=== PATIENT | female | born 1995 | race Caucasian/White ===

== ENCOUNTER 2020-06-27 07:13 | Inpatient (IN) | payer SELFPAY ==
[~2020-06-27 07:13] MED LIST: Bupivacaine 0.25% 30 ML SDV ONE; ePHEDrine Sulfate/0.9% NaCl/Pf 25 MG/5 ML SYRINGE IV ONE
[2020-06-27] MEDS ORDERED: Nalbuphine 10 MG/1 ML Vial IVPUSH PRN (08:20)
[2020-06-27] MEDS ORDERED: Ondansetron 4 MG/2 ML SDV IVPUSH PRN (08:20)
[2020-06-27] MEDS ORDERED: Sodium Chloride 0.9% 10 ML Syringe FLUSH PRN (08:20)
[2020-06-27] MEDS ORDERED: Oxytocin/Lactated Ringers 10 UNIT/1,000 ML BAG IV SCH ×2 (08:30)
[2020-06-27] MEDS: Lactated Ringers 1,000 ML IV SCH ×5 (08:46→20:53)
--- NOTE | 2020-06-27 08:48 | PCM.LDHP ---
L&D History of Present Illness - General Date of Service: 06/27/20 Admit Problem/Dx: Patient Status Order with Admit Dx/Problem 06/27/20 08:20 Patient Status [ADT] Routine Admission Diagnosis/Problem Admission Diagnosis/Problem Source of Information: Patient History Limitations: Reports: No Limitations - History of Present Illness Introduction:: 24 year old at 39w6 here in active labor. care with myself without complications. - Related Data Allergies/Adverse Reactions: Allergies Allergy/AdvReac Type Severity Reaction Status Date / Time No Known Allergies Allergy Verified 06/27/20 08:29 H&P Review of Systems - Review of Systems: Review Of Systems: See Below General: Reports: No Symptoms HEENT: Reports: No Symptoms Pulmonary: Reports: No Symptoms Cardiovascular: Reports: No Symptoms Gastrointestinal: Reports: No Symptoms Genitourinary: Reports: No Symptoms Musculoskeletal: Reports: No Symptoms Skin: Reports: No Symptoms Psychiatric: Reports: No Symptoms Neurological: Reports: No Symptoms Hematologic/Lymphatic: Reports: No Symptoms Immunologic: Reports: No Symptoms L&D Exam - Exam Exam: See Below - Vital Signs Weight: 88.451 kg - OB Specific Contraction Intensity: Mild to Moderate Movement: Active Heart Tones: Present Heart Rate (FHR) Variability: Moderate (6-25 bmp) Presentation: Vertex - Arellano Score Arellano Score Consistency: Medium Arellano Score Effacement: 51-70% Arellano Score Dilation: > 5 cm Arellano Score 's Station: -2 - Exam General: Alert, Oriented HEENT: PERRLA, Conjunctiva Clear, EACs Clear, EOMI, Hearing Intact, Mucosa Moist & Foley, Nares Patent, Normal Nasal Septum, Posterior Pharynx Clear, TMs Clear Neck: Supple, Trachea Midline Lungs: Clear to Auscultation, Normal Respiratory Effort Cardiovascular: Regular Rate, Regular Rhythm GI/Abdominal Exam: Normal Bowel Sounds, Soft, Non-Tender, No Organomegaly, No Distention, No Abnormal Bruit, No Mass, Pelvis Stable Extremities: Normal Inspection, Normal Range of Motion, Non-Tender, No Pedal Edema, Normal Capillary Refill Skin: Warm, Dry, Intact Psychiatric: Alert, Normal Affect, Normal Mood Problem List Initiated/Reviewed/Updated: Yes Orders Last 24hrs: Active Orders 24 hr Category Date Time Status Patient Status [ADT] Routine ADT 06/27/20 08:20 Active Regular Diet [DIET] Diet 06/27/20 Breakfast Active BLOOD BANK HOLD SPECIMEN [BBK] Stat Lab 06/27/20 08:20 Ordered CBC WITH AUTO DIFF [HEME] Stat Lab 06/27/20 08:20 Ordered CORONAVIRUS COVID-19 CHRISTEN [MOLEC] Stat Lab 06/27/20 08:15 Received RAPID PLASMA REAGIN,RPR [CHEM] Routine Lab 06/27/20 08:20 Ordered Calcium Carbonate [Tums] Med 06/27/20 08:20 Active 1,000 mg PO Q2H PRN Lactated Ringers [Ringers, Lactated] 1,000 ml Med 06/27/20 08:30 Active IV ASDIRECTED Nalbuphine [Nubain] Med 06/27/20 08:20 Active 10 mg IVPUSH Q2H PRN Ondansetron [Zofran] Med 06/27/20 08:20 Active 4 mg IVPUSH Q4H PRN Oxytocin/Lactated Ringers [Pitocin in LR 10 Units/1,000 Med 06/27/20 08:30 Active ML] 10 unit in 1,000 ml IV .CONTINUOUS Oxytocin/Lactated Ringers [Pitocin in LR 10 Units/1,000 Med 06/27/20 08:30 Active ML] 10 unit in 1,000 ml IV TITRATE Sodium Chloride 0.9% [Saline Flush] Med 06/27/20 08:20 Active 10 ml FLUSH ASDIRECTED PRN Electronic Heart Tones Ext w TOCO [WOMSER] Oth 06/27/20 08:20 Ordered Routine Electronic Heart Tones Internal [WOMSER] Per Unit Oth 06/27/20 08:20 Ordered Routine Peripheral IV Insertion Adult [OM.PC] Routine Oth 06/27/20 08:20 Ordered Resuscitation Status Routine Resus Stat 06/27/20 08:20 Ordered Medication Orders Calcium Carbonate/Glycine (Tums) 1,000 mg PO Q2H PRN PRN Reason: Indigestion Oxytocin/Lactated Ringer's (Pitocin In Lr 10 Units/1,000 Ml) 10 unit in 1,000 mls @ 12 mls/hr IV TITRATE JUAN; Protocol Oxytocin/Lactated Ringer's (Pitocin In Lr 10 Units/1,000 Ml) 10 unit in 1,000 mls @ 100 mls/hr IV .CONTINUOUS JUAN Lactated Ringer's (Ringers, Lactated) 1,000 mls @ 100 mls/hr IV ASDIRECTED JUAN Nalbuphine HCl (Nubain) 10 mg IVPUSH Q2H PRN PRN Reason: Pain Ondansetron HCl (Zofran) 4 mg IVPUSH Q4H PRN PRN Reason: Nausea/Vomiting Sodium Chloride (Saline Flush) 10 ml FLUSH ASDIRECTED PRN PRN Reason: Keep Vein Open Assessment/Plan Comment:: 24 year old here in labor. Desires epidural
[2020-06-27] MEDS ORDERED: ePHEDrine 50 MG/ML SDV IVPUSH PRN (09:19)
[2020-06-27] MEDS ORDERED: fentaNYL 100 MCG/2 ML SDV EPIDUR PRN (09:19)
[2020-06-27] MEDS ORDERED: diphenhydrAMINE 50 MG/ML SDV IVPUSH PRN (09:19)
[2020-06-27] MEDS: Bupivacaine/fentaNYL/NS 100 ML Bag EPIDUR PRN ×2 (09:37→17:25)
--- NOTE | 2020-06-27 10:13 | PCM.PREANE ---
Preanesthetic Assessment - Procedure Proposed Procedure: epidural - Anesthesia/Transfusion/Family Hx Anesthesia History: Prior Anesthesia Without Reaction Family History of Anesthesia Reaction: No Transfusion History: No Prior Transfusion(s) - Review of Systems General: Fatigue Pulmonary: No Symptoms Cardiovascular: No Symptoms Gastrointestinal: Abdominal Pain (labor) Neurological: No Symptoms Other: Reports: None - Physical Assessment Height: 1.75 m Weight: 88.451 kg ASA Class: 2 Mental Status: Alert & Oriented x3 Airway Class: Mallampati = 1 Dentition: Reports: Normal Dentition Thyro-Mental Finger Breadths: 3 Mouth Opening Finger Breadths: 3 ROM/Head Extension: Full Lungs: Clear to Auscultation, Normal Respiratory Effort Cardiovascular: Regular Rate, Regular Rhythm - Lab Values: Laboratory Last Values WBC 17.74 K/mm3 (3.98-10.04) H 06/27/20 08:44 RBC 3.92 M/mm3 (3.98-5.22) L 06/27/20 08:44 Hgb 12.6 gm/dl (11.2-15.7) 06/27/20 08:44 Hct 36.8 % (34.1-44.9) 06/27/20 08:44 MCV 93.9 fl (79.4-94.8) 06/27/20 08:44 MCH 32.1 pg (25.6-32.2) 06/27/20 08:44 MCHC 34.2 g/dl (32.2-35.5) 06/27/20 08:44 RDW Std Deviation 43.4 fL (36.4-46.3) 06/27/20 08:44 Plt Count 263 K/mm3 (182-369) 06/27/20 08:44 MPV 9.8 fl (9.4-12.3) 06/27/20 08:44 Neut % (Auto) 90.4 % (34.0-71.1) H 06/27/20 08:44 Lymph % (Auto) 5.3 % (19.3-51.7) L 06/27/20 08:44 Moca % (Auto) 3.7 % (4.7-12.5) L 06/27/20 08:44 Eos % (Auto) 0 (0.7-5.8) L 06/27/20 08:44 Baso % (Auto) 0.1 % (0.1-1.2) 06/27/20 08:44 Neut # (Auto) 16.05 K/mm3 (1.56-6.13) H 06/27/20 08:44 Lymph # (Auto) 0.94 K/mm3 (1.18-3.74) L 06/27/20 08:44 Moca # (Auto) 0.65 K/mm3 (0.24-0.36) H 06/27/20 08:44 Eos # (Auto) 0.00 K/mm3 (0.04-0.36) L 06/27/20 08:44 Baso # (Auto) 0.01 K/mm3 (0.01-0.08) 06/27/20 08:44 Manual Slide Review Abnormal smear 06/27/20 08:44 SARS-CoV-2 RNA (CHRISTEN) Negative (NEGATIVE) 06/27/20 08:15 - Allergies Allergies/Adverse Reactions: Allergies Allergy/AdvReac Type Severity Reaction Status Date / Time No Known Allergies Allergy Verified 06/27/20 08:29 - Anesthesia Plan Pre-Op Medication Ordered: None - Acknowledgements Anesthesia Type Planned: Epidural Pt an Appropriate Candidate for the Planned Anesthesia: Yes Alternatives and Risks of Anesthesia Discussed w Pt/Guardian: Yes Pt/Guardian Understands and Agrees with Anesthesia Plan: Yes PreAnesthesia Questionnaire Gastrointestinal History: Reports: GERD - CURRENT (IN HOUSE) MEDS Current Meds: Current Medications Calcium Carbonate/Glycine (Tums) 1,000 mg PO Q2H PRN PRN Reason: Indigestion Diphenhydramine HCl (Benadryl) 25 mg IVPUSH Q6H PRN PRN Reason: pruritis Ephedrine Sulfate (Ephedrine Sulfate) 5 mg IVPUSH ASDIRECTED PRN PRN Reason: Hypotension Fentanyl (Sublimaze) 100 mcg EPIDUR Q3H PRN PRN Reason: Pain Last Admin: 06/27/20 09:37 Dose: 100 mcg Documented by: Fentanyl/Bupivacaine HCl (Fentanyl/Bupivacaine/Ns 2 Mcg-0.125% 100 Ml) 100 ml EPIDUR ASDIRECTED PRN PRN Reason: Pain Last Admin: 06/27/20 09:37 Dose: 100 ml Documented by: Oxytocin/Lactated Ringer's (Pitocin In Lr 10 Units/1,000 Ml) 10 unit in 1,000 mls @ 12 mls/hr IV TITRATE JUAN; Protocol Oxytocin/Lactated Ringer's (Pitocin In Lr 10 Units/1,000 Ml) 10 unit in 1,000 mls @ 100 mls/hr IV .CONTINUOUS JUAN Lactated Ringer's (Ringers, Lactated) 1,000 mls @ 100 mls/hr IV ASDIRECTED JUAN Last Admin: 06/27/20 09:38 Dose: 100 mls/hr Documented by: Nalbuphine HCl (Nubain) 10 mg IVPUSH Q2H PRN PRN Reason: Pain Ondansetron HCl (Zofran) 4 mg IVPUSH Q4H PRN PRN Reason: Nausea/Vomiting Sodium Chloride (Saline Flush) 10 ml FLUSH ASDIRECTED PRN PRN Reason: Keep Vein Open
[2020-06-27] MEDS ORDERED: Lactated Ringers 1,000 ML ONE (10:37)
[2020-06-27] MEDS: Calcium Carbonate 500 MG Tab.Chew PO PRN ×2 (10:47→15:59)
[2020-06-27] MEDS ORDERED: Ampicillin 2 GM in Sodium Chloride 0.9% 100 ML IV SCH (18:15)
[2020-06-27] MEDS ORDERED: Acetaminophen 325 MG Tab PO ONE (19:36)
--- NOTE | 2020-06-27 21:31 | PCM.SN.2 ---
- Free Text/Narrative Note: Stage I - Patient presented in active labor. Progressed to complete with overall reassuring heart tones. Stage II- of viable male, weight 8#10oz, 8/9 APGARS at 2107. Head delivered in controlled manner over intact perineum. Body and shoulders atraumatically. Vigorous cry. Cord clamped and cut at one minute of life. Stage III - of intact placenta. 3vc. EBL 200. 2nd degree midline laceration repaired with 3-0 vicryl.
[2020-06-27] MEDS ORDERED: Hydrocortisone Acetate 25 MG Supp RECTAL PRN (22:37)
[2020-06-27] MEDS ORDERED: Benzocaine/Menthol 20%-0.5% Spray 56 GM Canister TOP PRN (22:37)
[2020-06-27] MEDS ORDERED: Witch Hazel Medicated Pads 40/Jar TOP PRN (22:37)
[2020-06-28] MEDS: Docusate Sodium 100 MG Cap PO PRN ×2 (00:06→10:41)
[2020-06-28] MEDS: Ibuprofen 600 MG Tab PO PRN ×2 (00:07→12:40)
[2020-06-28] MEDS ORDERED: Hydrocortisone 1% Crm 30 GM Tube TOP PRN (08:28)
--- NOTE | 2020-06-28 14:21 | PCM48HPAN ---
Post Anesthesia Note - EVALUATION WITHIN 48HRS OF ANESTHETIC Vital Signs in Normal Range: Yes Patient Participated in Evaluation: Yes Respiratory Function Stable: Yes Airway Patent: Yes Cardiovascular Function Stable: Yes Hydration Status Stable: Yes Pain Control Satisfactory: Yes Nausea and Vomiting Control Satisfactory: Yes Mental Status Recovered: Yes Vital Signs: Last Vital Signs Temp 36.4 C 06/28/20 10:32 Pulse 99 06/28/20 10:32 Resp 16 06/28/20 10:32 BP 104/67 06/28/20 10:32 Pulse Ox 98 06/28/20 10:32
[2020-06-29] MEDS: Ibuprofen 600 MG Tab PO PRN (04:32)
== END 2020-06-29 11:55 | disposition home or self-care (01) | DRG 807 ==
LOC: JD.OBCHECK 07:13 → JD.OB 07:22 → JD.OBCHECK 08:19 → OBSVTOIN 21:07 → JD.MS 23:46 → JD.OB 06-28 04:26
PROVIDERS: ADMIT Obstetrics & Gynecology; ATTEND Obstetrics & Gynecology
PROC: 10E0XZZ Delivery of Products of Conception, External Approach (ICD-10-PCS; principal; 2020-06-27)
PROC: 0KQM0ZZ Repair Perineum Muscle, Open Approach (ICD-10-PCS; 2020-06-27)
PROC: 3E0R3BZ Introduction of Anesthetic Agent into Spinal Canal, Percutaneous Approach (ICD-10-PCS; 2020-06-27)
DX: O70.1 Second degree perineal laceration during delivery (principal); Z37.0 Single live birth; Z3A.39 39 weeks gestation of pregnancy; Z20.828 Contact with and (suspected) exposure to other viral communicable diseases
CPT/HCPCS: 36415; 51702; 59025; 59409; 85025; 86592; 86850; 86900; 86901; A9270-GY; J0171; J0290; J1580; J2405; J2590; J3010; J3490; J7050; J7120; U0002

== ENCOUNTER 2022-11-02 03:01 | Inpatient (IN) | payer BC ==
[2022-11-02] MEDS ORDERED: Lidocaine 1% 50 ML MDV INJECT ONE (03:58)
[2022-11-02] MEDS ORDERED: Acetaminophen 325 MG Tab PO PRN ×2 (03:58→11:47)
[2022-11-02] MEDS ORDERED: Calcium Carbonate 500 MG Tab.Chew PO PRN (03:58)
[2022-11-02] MEDS ORDERED: Nalbuphine 10 MG/0.5 ML Syringe IVPUSH PRN (03:58)
[2022-11-02] MEDS ORDERED: Sodium Chloride 0.9% 10 ML Syringe FLUSH PRN (03:58)
[2022-11-02] MEDS ORDERED: Oxytocin/Lactated Ringers 10 UNIT/1,000 ML BAG IV SCH ×3 (04:00→11:47)
[2022-11-02] MEDS: Lactated Ringers 1,000 ML IV SCH ×4 (04:15→08:06)
[2022-11-02] MEDS ORDERED: Bupivacaine/fentaNYL/NS 100 ML Bag EPIDUR PRN (04:39)
[2022-11-02] MEDS ORDERED: fentaNYL 100 MCG/2 ML SDV EPIDUR PRN (04:39)
[2022-11-02] MEDS ORDERED: diphenhydrAMINE 50 MG/ML SDV IVPUSH PRN (04:39)
[2022-11-02] MEDS ORDERED: ePHEDrine 50 MG/ML SDV IVPUSH PRN (04:39)
[2022-11-02] MEDS: Ondansetron 4 MG/2 ML SDV IVPUSH PRN ×2 (04:58→08:56)
[2022-11-02] MEDS ORDERED: Sodium Chloride 0.9% 10 ML Syringe FLUSH SCH (09:00)
[2022-11-02] MEDS ORDERED: Lidocaine 1% 10 ML MDV ONE (11:00)
[2022-11-02] MEDS ORDERED: Benzocaine/Menthol 20%-0.5% Spray 78 GM Cannister TOP PRN (11:47)
[2022-11-02] MEDS ORDERED: Magnesium Hydroxide 400 MG/5 ML Susp 30 ML Cup PO PRN (11:47)
[2022-11-02] MEDS ORDERED: Witch Hazel Medicated Pads 40/Jar TOP PRN (11:47)
[2022-11-02] MEDS ORDERED: Hydrocortisone Acetate 25 MG Supp RECTAL PRN (11:47)
[2022-11-02] MEDS: Docusate Sodium 100 MG Cap PO PRN (13:09)
[2022-11-02] MEDS: Ibuprofen 600 MG Tab PO PRN ×2 (13:10→20:48)
[2022-11-03] MEDS: Ibuprofen 600 MG Tab PO PRN ×2 (05:57→12:34)
[2022-11-03] MEDS: Docusate Sodium 100 MG Cap PO PRN (05:58)
[2022-11-03] MEDS ORDERED: Prenatal Multivitamin with Calcium/Folic Acid/Iron Tab PO SCH (09:00)
== END 2022-11-03 12:53 | disposition home or self-care (01) | DRG 560 ==
LOC: JD.OBCHECK 03:01 → JD.OB 04:55 → OBSVTOIN 09:15 → JD.OB 09:15
PROVIDERS: ADMIT Obstetrics & Gynecology; ATTEND Obstetrics & Gynecology
PROC: 10E0XZZ Delivery of Products of Conception, External Approach (ICD-10-PCS; principal; 2022-11-02)
PROC: 10907ZC Drainage of Amniotic Fluid, Therapeutic from Products of Conception, Via Natural or Artificial Opening (ICD-10-PCS; 2022-11-02)
PROC: 0HQ9XZZ Repair Perineum Skin, External Approach (ICD-10-PCS; 2022-11-02)
PROC: 0UQMXZZ Repair Vulva, External Approach (ICD-10-PCS; 2022-11-02)
PROC: 3E0R3BZ Introduction of Anesthetic Agent into Spinal Canal, Percutaneous Approach (ICD-10-PCS; 2022-11-02)
PROC: 00HU33Z Insertion of Infusion Device into Spinal Canal, Percutaneous Approach (ICD-10-PCS; 2022-11-02)
DX: O42.02 Full-term premature rupture of membranes, onset of labor within 24 hours of rupture (principal); O99.02 Anemia complicating childbirth; D64.9 Anemia, unspecified; K21.9 Gastro-esophageal reflux disease without esophagitis; O99.62 Diseases of the digestive system complicating childbirth; O72.1 Other immediate postpartum hemorrhage; O71.82 Other specified trauma to perineum and vulva; O70.0 First degree perineal laceration during delivery; Z37.0 Single live birth; Z3A.38 38 weeks gestation of pregnancy; Z87.891 Personal history of nicotine dependence; O76 Abnormality in fetal heart rate and rhythm complicating labor and delivery
CPT/HCPCS: 01967; 36415; 51701; 51702; 59025; 59409; 84112; 85025; 85384; 85610; 86592; 86850; 86900; 86901; A9270-GY; J2405; J2590; J3010; J3490; J7120